=== PATIENT | female | born 1985 | race African-American/Black ===

== ENCOUNTER 2019-08-14 21:26 | Emergency (ER) | payer MEDICAID, OTHER ==
[~2019-08-14] VITALS: Ht 160 cm; Wt 61.0 kg
[~2019-08-14 21:26] MED LIST: ALBU6.7H9
[2019-08-14] MEDS ORDERED: IPRATROPIUM BROMIDE (0.02%) 0.5MG/2.5ML NEB HHN STA (22:00)
[2019-08-14] MEDS ORDERED: ALBUTEROL (0.083%) 2.5MG/3ML NEB HHN STA (22:00)
[2019-08-14] MEDS ORDERED: SODIUM CHLORIDE 0.9% 1,000 ML IV ONE (22:00)
[2019-08-14] MEDS ORDERED: METHYLPREDNISOLONE SOD SUCC 125 MG/2 ML VIAL IV STA (22:00)
[2019-08-14 23:06] LABS: BASOPHILS % 0.6 % (0.0-2.0); EOSINOPHILS % 5.5 % (0.0-5.0); HEMATOCRIT. 38.9 % (36.0-48.0); HEMOGLOBIN. 12.9 g/dL (12.0-16.0); LYMPHOCYTES % 46.9 % (20.0-50.0); MEAN CORPUSCULAR HEMOGLOBIN 30.4 pg (28.0-32.0); MEAN CORPUSCULAR VOLUME 91.7 fL (81.0-99.0); MEAN PLATELET VOLUME 8.6 fl (7.4-10.4); MONOCYTES % 4.7 % (2.0-8.0); NEUTROPHILS % 42.3 % (40.0-76.0); PLATELET 313 x1000/uL (130-400); RED BLOOD CELL COUNT 4.24 mill/uL (4.2-5.4)
[2019-08-14 23:10] LABS: CHLORIDE 108 mEq/L (98-107)
[2019-08-15 00:06] VITALS: BP 121/89
== END 2019-08-15 00:07 | disposition home or self-care (01) ==
LOC: ER 21:26
DX: J45.901 Unspecified asthma with (acute) exacerbation (principal); F12.10 Cannabis abuse, uncomplicated
CPT/HCPCS: 36415; 71045; 80053; 85025; 93005; 94640; 96374; 99284; J2930; J7030; J7611; Z7610

== ENCOUNTER 2020-06-23 19:27 | Emergency (ER) | payer MEDICAID ==
[~2020-06-23] VITALS: Ht 162.6 cm; Wt 72.0 kg
[2020-06-23] MEDS ORDERED: ALBUTEROL (0.083%) 2.5MG/3ML NEB HHN STA (20:42)
[2020-06-23] MEDS ORDERED: IPRATROPIUM BROMIDE (0.02%) 0.5MG/2.5ML NEB HHN STA (20:42)
[2020-06-23] MEDS ORDERED: PREDNISONE 20MG TABLET PO STA (20:42)
[2020-06-23 21:45] VITALS: BP 114/80
== END 2020-06-23 21:58 | disposition home or self-care (01) ==
LOC: ER 19:27
DX: J45.901 Unspecified asthma with (acute) exacerbation (principal); F12.10 Cannabis abuse, uncomplicated
CPT/HCPCS: 94640; 99283; J7512; Z7610

== ENCOUNTER 2025-09-02 13:19 | Emergency (ER) | payer SELFPAY ==
[~2025-09-02] VITALS: Ht 170.2 cm; Wt 80.0 kg
[~2025-09-02 13:19] MED LIST changes: +ALBU6.7H3; -ALBU6.7H9
[2025-09-02 13:23] VITALS: O2SAT 100
[2025-09-02] MEDS: KETOROLAC 15MG/ML VIAL IM ONE (16:45)
[2025-09-02 17:42] LABS: CLARITY URINE TURBID (CLEAR); COLOR URINE YELLOW (YELLOW); GLUCOSE URINE 1+ (NEGATIVE); KETONES URINE TRACE (NEGATIVE); LEUKOCYTE ESTERASE URINE 1+ (NEGATIVE); NITRITE URINE POSITIVE (NEGATIVE); OCCULT BLOOD URINE NEGATIVE (NEGATIVE); PH URINE 6.0 (4.5-8.0); PROTEIN URINE TRACE (NEGATIVE); SPECIFIC GRAVITY URINE 1.029 (1.005-1.030); UROBILINOGEN URINE 1.0 E.U./dL (0.2-1.0)
[2025-09-02 18:04] LABS: BACTERIA URINE 4+; RBC URINE 0-2 /hpf (0-2); SQUAMOUS EPITHELIAL CELL URINE 1+ /lpf (RARE/1+)
[2025-09-02] MEDS ORDERED: IBUP-2028 MT (18:14)
[2025-09-02] MEDS ORDERED: CEPH500C2 MT (18:14)
[2025-09-02 18:27] VITALS: BP 127/84; PULSE 62; RESP 16; TEMP 37.1; O2SAT 100
== END 2025-09-02 18:35 | disposition home or self-care (01) ==
LOC: ER 13:19
DX: N39.0 Urinary tract infection, site not specified (principal); J45.909 Unspecified asthma, uncomplicated
CPT/HCPCS: 81003; 81025; 74176; 96372; 99285; J1885; Z7610